=== PATIENT | female | born 1975 | race Caucasian/White ===

== ENCOUNTER → 2018-03-26 | Outpatient (CLI) | payer OTHER ==
[2017-06-28 12:56] VITALS: BP 137/95
[~2018-03-26] MED LIST: PERCOCET 325 MG1 TA2 PO; SILVER SULFADIA50 GM TP; ZYRTEC ALLERGY10 MG PO
== END ==
LOC: RAD 09:58
DX: Z12.31 Encounter for screening mammogram for malignant neoplasm of breast (principal); R10.2 Pelvic and perineal pain